=== PATIENT | male | born 1980 | race Two or more races ===

== ENCOUNTER 2024-04-09 09:50 | Emergency (ER) | payer OTHER ==
[~2024-04-09] VITALS: Ht 175.3 cm; Wt 104.5 kg
[2024-04-09 09:59] VITALS: TEMP 98
[2024-04-09 12:48] LABS: BASOPHILS % (AUTO) 0.4 % (0.0-2.0); EOSINOPHILS % (AUTO) 0.4 % (1.0-6.0); HEMOGLOBIN 15.7 g/dL (13.5-17.5); LYMPHOCYTES # (AUTO) 0.4 K/uL (1.0-4.8); LYMPHOCYTES % (AUTO) 8.6 % (22.0-44.0); MEAN CORPUSCULAR HEMOGLOBIN 30.6 pg (26.0-34.0); MEAN CORPUSCULAR HGB CONC 34.2 G/dL (31.0-37.0); MEAN CORPUSCULAR VOLUME 89 fL (80-100); MONOCYTES # (AUTO) 0.4 K/uL (0.1-1.0); MONOCYTES % (AUTO) 8.9 % (2.0-9.0); NEUTROPHILS # (AUTO) 3.7 K/uL (1.8-7.7); NEUTROPHILS % (AUTO) 81.7 % (40.0-70.0); PLATELET COUNT (AUTO) 41 K/uL (150-450); RED BLOOD CELL COUNT(AUTO) 5.14 MIL/uL (4.50-5.90); RED CELL DISTRIBUTION WIDTH 16.6 % (11.5-14.5); WHITE BLOOD COUNT (AUTO) 4.6 K/uL (4.5-11.0)
[2024-04-09 13:05] LABS: TROPONIN I-HIGH SENSITIVITY 6 ng/L (<76)
[2024-04-09 13:16] LABS: B-TYPE NATRIURETIC PEPTIDE 36 pg/mL (0-100)
[2024-04-09 13:21] LABS: CREATINE KINASE, TOTAL ONLY 579 U/L (39-308)
[2024-04-09 13:30] VITALS: BP 142/88; PULSE 74; RESP 18
[2024-04-09 13:34] LABS: APPEARANCE,URINE CLEAR (CLEAR); BILIRUBIN,URINE NEGATIVE (NEGATIVE); COLOR,URINE YELLOW (YELLOW); GLUCOSE, URINE (UA) >=1000 mg/dL (NEGATIVE); KETONES,URINE 40-60 mg/dL (NEGATIVE); LEUKOCYTE ESTERASE ,URINE NEGATIVE (NEGATIVE); NITRATE,URINE NEGATIVE (NEGATIVE); OCCULT BLOOD,URINE NEGATIVE (NEGATIVE); PH,URINE 7.5 (5.0-8.0); PROTEIN,URINE TRACE mg/dL (NEGATIVE); SPECIFIC GRAVITIY, URINE 1.017 (1.003-1.030)
[2024-04-09 13:46] LABS: ALCOHOL, BLOOD (SERUM) < 3 mg/dL (0-10)
[2024-04-09 13:46] LABS: BACTERIA,URINE None Seen /HPF (None Seen); RBC,URINE None Seen /HPF (0-2); SQUAMOUS EPITHELIAL CELL,UR None Seen /LPF (None Seen); WBC,URINE None Seen /HPF (0-5)
[2024-04-09] MEDS ORDERED: CHLO10CA7 PO (13:51)
[2024-04-09] MEDS: ChlordiazePOXIDE HCL 25 MG CAPSULE PO ONE (14:13)
== END 2024-04-09 14:20 | disposition home or self-care (01) ==
LOC: EMS 09:50
DX: F10.10 Alcohol abuse, uncomplicated (principal); E11.9 Type 2 diabetes mellitus without complications; I10 Essential (primary) hypertension; Z79.899 Other long term (current) drug therapy; Y90.6 Blood alcohol level of 120-199 mg/100 ml
CPT/HCPCS: 99285; 71045; 82550; 83880; 84484; 85025; 36415; 82962; 93005; 81001; G0480

== ENCOUNTER 2024-08-14 16:22 | Emergency (ER) | payer MEDICAID, OTHER ==
[~2024-08-14] VITALS: Ht 172.7 cm; Wt 90.9 kg
[~2024-08-14 16:22] MED LIST: CHLO10CA7 PO
[2024-08-14 16:35] VITALS: BP 138/90; PULSE 96; RESP 18; TEMP 98.4; O2SAT 99
== END 2024-08-14 19:00 | disposition left against medical advice (07) ==
LOC: EMS 16:27
DX: F10.129 Alcohol abuse with intoxication, unspecified (principal); Z53.21 Procedure and treatment not carried out due to patient leaving prior to being seen by health care provider; Y90.9 Presence of alcohol in blood, level not specified
CPT/HCPCS: 82962

== ENCOUNTER 2025-03-02 21:49 | Emergency (ER) | payer OTHER ==
[~2025-03-02] VITALS: Ht 172.7 cm; Wt 91.0 kg
[2025-03-02 21:57] VITALS: TEMP 98
[2025-03-02 22:22] LABS: BASOPHILS % (AUTO) 0.1 % (0.0-2.0); EOSINOPHILS % (AUTO) 0.2 % (1.0-6.0); HEMATOCRIT 42.1 % (41-53); HEMOGLOBIN 14.4 g/dL (13.5-17.5); LYMPHOCYTES # (AUTO) 1.3 K/uL (1.0-4.8); LYMPHOCYTES % (AUTO) 15.1 % (22.0-44.0); MEAN CORPUSCULAR HEMOGLOBIN 29.3 pg (26.0-34.0); MEAN CORPUSCULAR HGB CONC 34.2 G/dL (31.0-37.0); MEAN CORPUSCULAR VOLUME 86 fL (80-100); MONOCYTES # (AUTO) 0.8 K/uL (0.1-1.0); MONOCYTES % (AUTO) 9.5 % (2.0-9.0); NEUTROPHILS # (AUTO) 6.3 K/uL (1.8-7.7); NEUTROPHILS % (AUTO) 75.1 % (40.0-70.0); RED BLOOD CELL COUNT(AUTO) 4.92 MIL/uL (4.50-5.90); RED CELL DISTRIBUTION WIDTH 13.9 % (11.5-14.5); WHITE BLOOD COUNT (AUTO) 8.4 K/uL (4.5-11.0)
[2025-03-02 22:28] LABS: ANION GAP 14 mmol/L (8-16); CALCIUM, TOTAL 8.6 mg/dL (8.8-10.5); CARBON DIOXIDE 23 mmol/L (22-29); CHLORIDE 92 mmol/L (98-107); CREATININE 0.88 mg/dL (0.60-1.30); GLOMERULAR FILTR. RATE CALC > 60 mL/min (>60); POTASSIUM 3.9 mmol/L (3.5-5.1); SODIUM SERUM 129 mmol/L (136-145); UREA NITROGEN, BLOOD 6 mg/dL (7-18)
[2025-03-02 22:30] LABS: GLUCOSE,RANDOM 424 mg/dL (70-110)
[2025-03-02 22:47] LABS: PLATELET COUNT (AUTO) 99 K/uL (150-450)
[2025-03-02] MEDS ORDERED: INSULIN REGULAR, HUMAN 100 UNITS/ML IVP ONE (23:15)
[2025-03-02] MEDS ORDERED: POTASSIUM CHLORIDE 20 MEQ ER TABLET PO ONE (23:15)
[2025-03-02] MEDS ORDERED: SODIUM CHLORIDE 0.9% 1,000 ML IV ONE (23:15)
[2025-03-03 01:30] VITALS: BP 129/88; PULSE 101; RESP 17; O2SAT 98
== END 2025-03-03 02:10 | disposition home or self-care (01) ==
LOC: EMS 21:49
DX: F10.129 Alcohol abuse with intoxication, unspecified (principal); E11.65 Type 2 diabetes mellitus with hyperglycemia; E78.00 Pure hypercholesterolemia, unspecified; I10 Essential (primary) hypertension; F17.210 Nicotine dependence, cigarettes, uncomplicated; Z79.899 Other long term (current) drug therapy; Y90.9 Presence of alcohol in blood, level not specified
CPT/HCPCS: 80048; 82962; 85025; 96374; 99283

== ENCOUNTER 2025-03-18 11:33 | Inpatient (IN) | payer OTHER ==
[~2025-03-18] VITALS: Ht 170.2 cm; Wt 92.5 kg
[2025-03-18 12:06] LABS: GLUCOMETER DEV NAME(LOC) ER.7; GLUCOSE,POINT OF CARE 247 MG/DL (70-110)
[2025-03-18 13:25] LABS: BASOPHILS % (AUTO) 0.4 % (0.0-2.0); EOSINOPHILS % (AUTO) 0.1 % (1.0-6.0); HEMATOCRIT 43.9 % (41-53); HEMOGLOBIN 15.1 g/dL (13.5-17.5); LYMPHOCYTES # (AUTO) 0.6 K/uL (1.0-4.8); LYMPHOCYTES % (AUTO) 8.1 % (22.0-44.0); MEAN CORPUSCULAR HEMOGLOBIN 30.2 pg (26.0-34.0); MEAN CORPUSCULAR HGB CONC 34.5 G/dL (31.0-37.0); MEAN CORPUSCULAR VOLUME 88 fL (80-100); MONOCYTES # (AUTO) 0.7 K/uL (0.1-1.0); MONOCYTES % (AUTO) 9.2 % (2.0-9.0); NEUTROPHILS # (AUTO) 6.1 K/uL (1.8-7.7); NEUTROPHILS % (AUTO) 82.2 % (40.0-70.0); PLATELET COUNT (AUTO) 199 K/uL (150-450); RED BLOOD CELL COUNT(AUTO) 5.01 MIL/uL (4.50-5.90); RED CELL DISTRIBUTION WIDTH 15.2 % (11.5-14.5); WHITE BLOOD COUNT (AUTO) 7.5 K/uL (4.5-11.0)
[2025-03-18 13:32] LABS: ANION GAP 9 mmol/L (8-16); CARBON DIOXIDE 28 mmol/L (22-29); CHLORIDE 96 mmol/L (98-107); CREATININE 0.83 mg/dL (0.60-1.30); GLOMERULAR FILTR. RATE CALC > 60 mL/min (>60); GLUCOSE,RANDOM 246 mg/dL (70-110); POTASSIUM 3.7 mmol/L (3.5-5.1); SODIUM SERUM 133 mmol/L (136-145); UREA NITROGEN, BLOOD 4 mg/dL (7-18)
[2025-03-18 13:34] LABS: LIPASE 22 U/L (16-77)
[2025-03-18] MEDS: ChlordiazePOXIDE HCL 25 MG CAPSULE PO ONE (13:36)
[2025-03-18] MEDS: CloNIDine HCL 0.1 MG TABLET PO ONE (13:36)
[2025-03-18] MEDS: SODIUM CHLORIDE 0.9% 1,000 ML IV ONE (13:36)
[2025-03-18 13:39] LABS: ALCOHOL, BLOOD (SERUM) < 3 mg/dL (0-10)
[2025-03-18 13:42] LABS: TROPONIN I-HIGH SENSITIVITY 10 ng/L (<76)
[2025-03-18] MEDS ORDERED: INSULIN LISPRO 100 UNITS/ML SQ PRN (14:00)
[2025-03-18] MEDS ORDERED: GLUCAGON,HUMAN RECOMBINANT 1 MG VIAL IM PRN (14:00)
[2025-03-18] MEDS ORDERED: ONDANSETRON HCL 4 MG/2 ML VIAL IVP PRN (14:00)
[2025-03-18] MEDS ORDERED: DEXTROSE 50%-WATER 25 GM/50 ML SYRINGE IVP PRN (14:15)
[2025-03-18 14:53] LABS: APPEARANCE,URINE CLEAR (CLEAR); BILIRUBIN,URINE NEGATIVE (NEGATIVE); COLOR,URINE LIGHT YELLOW (YELLOW); GLUCOSE, URINE (UA) >=1000 mg/dL (NEGATIVE); KETONES,URINE NEGATIVE (NEGATIVE); LEUKOCYTE ESTERASE ,URINE NEGATIVE (NEGATIVE); NITRATE,URINE NEGATIVE (NEGATIVE); OCCULT BLOOD,URINE NEGATIVE (NEGATIVE); PROTEIN,URINE NEGATIVE (NEGATIVE); SPECIFIC GRAVITIY, URINE 1.005 (1.003-1.030)
[2025-03-18] MEDS: 1: MAGNESIUM SULFATE 2 GM, MVI, ADULT NO.1 WITH VIT K 10 ML, THIAMINE 100 MG, FOLIC ACID IV SCH (14:54)
[2025-03-18 15:06] LABS: BACTERIA,URINE None Seen /HPF (None Seen); RBC,URINE None Seen /HPF (0-2); SQUAMOUS EPITHELIAL CELL,UR None Seen /LPF (None Seen); WBC,URINE None Seen /HPF (0-5)
[2025-03-18] MEDS: LORazepam 2 MG/ML VIAL IVP PRN (16:21)
[2025-03-18] MEDS: ACETAMINOPHEN 325 MG TABLET PO PRN (16:21)
[2025-03-18 16:25] VITALS: BP 147/106; PULSE 79; RESP 19; TEMP 98.8; O2SAT 97
[2025-03-18 16:36] LABS: GLUCOMETER DEV NAME(LOC) ERT.7; GLUCOSE,POINT OF CARE 215 MG/DL (70-110)
[2025-03-18] MEDS: INSULIN LISPRO 100 UNITS/ML SQ PRN (17:43)
[2025-03-18 19:05] LABS: GLUCOMETER DEV NAME(LOC) 5S.2D; GLUCOSE,POINT OF CARE 264 MG/DL (70-110)
[2025-03-18 20:12] VITALS: BP 133/87; PULSE 71; RESP 18; TEMP 98.6; O2SAT 97
[2025-03-18 20:30] LABS: GLUCOMETER DEV NAME(LOC) 5S.2D; GLUCOSE,POINT OF CARE 226 MG/DL (70-110)
[2025-03-18] MEDS: DOCUSATE SODIUM 100 MG CAPSULE PO SCH (20:48)
[2025-03-18] MEDS: FAMOTIDINE 20 MG TABLET PO SCH (20:51)
[2025-03-19] VITALS (7 sets, daily range): BP systolic 130–140; BP diastolic 85–99; PULSE 68–78; RESP 18–19; TEMP 98.1–98.8; O2SAT 97–99
[2025-03-19] MEDS: ChlordiazePOXIDE HCL 25 MG CAPSULE PO SCH (00:13)
[2025-03-19 07:00] LABS: GLUCOMETER DEV NAME(LOC) 5S.1D; GLUCOSE,POINT OF CARE 224 MG/DL (70-110)
[2025-03-19] MEDS: MetFORMIN HCL 500 MG TABLET PO SCH (18:03)
[2025-03-20 04:05] VITALS: BP 124/92; PULSE 64; RESP 18; TEMP 98.2; O2SAT 95
[2025-03-20 06:34] LABS: BASOPHILS % (AUTO) 0.5 % (0.0-2.0); HEMATOCRIT 42.1 % (41-53); HEMOGLOBIN 14.6 g/dL (13.5-17.5); LYMPHOCYTES % (AUTO) 22.6 % (22.0-44.0); MEAN CORPUSCULAR HEMOGLOBIN 30.7 pg (26.0-34.0); MEAN CORPUSCULAR HGB CONC 34.6 G/dL (31.0-37.0); MEAN CORPUSCULAR VOLUME 89 fL (80-100); MONOCYTES # (AUTO) 0.4 K/uL (0.1-1.0); MONOCYTES % (AUTO) 9.2 % (2.0-9.0); NEUTROPHILS % (AUTO) 65.7 % (40.0-70.0); PLATELET COUNT (AUTO) 153 K/uL (150-450); RED BLOOD CELL COUNT(AUTO) 4.75 MIL/uL (4.50-5.90); RED CELL DISTRIBUTION WIDTH 15.3 % (11.5-14.5); WHITE BLOOD COUNT (AUTO) 4.6 K/uL (4.5-11.0)
[2025-03-20] MEDS ORDERED: SODIUM CHLORIDE 0.9% 1,000 ML ONE (06:37)
[2025-03-20 06:46] LABS: ANION GAP 6 mmol/L (8-16); CALCIUM, TOTAL 8.6 mg/dL (8.8-10.5); CARBON DIOXIDE 27 mmol/L (22-29); CHLORIDE 105 mmol/L (98-107); CREATININE 0.61 mg/dL (0.60-1.30); GLOMERULAR FILTR. RATE CALC > 60 mL/min (>60); GLUCOSE,RANDOM 203 mg/dL (70-110); POTASSIUM 3.6 mmol/L (3.5-5.1); SODIUM SERUM 138 mmol/L (136-145); UREA NITROGEN, BLOOD 7 mg/dL (7-18)
[2025-03-20 08:36] VITALS: BP 122/88; PULSE 70; RESP 19; TEMP 98.6; O2SAT 96
[2025-03-20] MEDS ORDERED: METF-1211 PO (10:55)
[2025-03-20 12:31] VITALS: BP 126/85; PULSE 68; RESP 19; TEMP 99; O2SAT 99
[2025-03-21 11:11] LABS: GLUCOMETER DEV NAME(LOC) 5S.2D; GLUCOSE,POINT OF CARE 248 MG/DL (70-110)
[2025-03-21 11:11] LABS: GLUCOMETER DEV NAME(LOC) 5S.2D; GLUCOSE,POINT OF CARE 228 MG/DL (70-110)
[2025-03-21 11:11] LABS: GLUCOMETER DEV NAME(LOC) 5S.2D; GLUCOSE,POINT OF CARE 182 MG/DL (70-110)
[2025-03-21 11:11] LABS: GLUCOMETER DEV NAME(LOC) 5S.2D; GLUCOSE,POINT OF CARE 256 MG/DL (70-110)
== END 2025-03-20 12:45 | disposition home or self-care (01) | DRG 775 ==
LOC: EMS 11:35 → EDH 13:59 → 5S 15:55
PROVIDERS: ADMIT Internal Medicine; ATTEND Internal Medicine
DX: F10.139 Alcohol abuse with withdrawal, unspecified (principal); E11.9 Type 2 diabetes mellitus without complications; E66.9 Obesity, unspecified; I10 Essential (primary) hypertension; Z68.31 Body mass index [BMI] 31.0-31.9, adult; E78.00 Pure hypercholesterolemia, unspecified; Z83.3 Family history of diabetes mellitus; Z87.891 Personal history of nicotine dependence
CPT/HCPCS: 80048; 81001; 82962; 83690; 84484; 85025; 93005; 96361; 96365; 96375; 99285; G0480; J2060; J3411; J3475; J3490; J7030; 36415-L1; 36415-TC

== ENCOUNTER 2025-03-31 23:03 | Emergency (ER) | payer OTHER ==
[~2025-03-31] VITALS: Ht 172.7 cm; Wt 90.0 kg
[~2025-03-31 23:03] MED LIST changes: -CHLO10CA7 PO; +METF-1211 PO
[2025-04-01 06:02] VITALS: BP 128/71; PULSE 78; RESP 18; TEMP 97.1; O2SAT 97
== END 2025-04-01 06:12 | disposition home or self-care (01) ==
LOC: EMS 23:16
DX: F10.129 Alcohol abuse with intoxication, unspecified (principal); E11.9 Type 2 diabetes mellitus without complications; E78.00 Pure hypercholesterolemia, unspecified; I10 Essential (primary) hypertension; F17.210 Nicotine dependence, cigarettes, uncomplicated; Y90.9 Presence of alcohol in blood, level not specified
CPT/HCPCS: 99285; Z7502

== ENCOUNTER 2025-04-18 13:49 | Inpatient (IN) | payer OTHER ==
[~2025-04-18] VITALS: Ht 172.7 cm; Wt 87.9 kg
[2025-04-18 14:24] LABS: PLATELET COUNT (AUTO) 61 K/uL (150-450); RED BLOOD CELL COUNT(AUTO) 4.87 MIL/uL (4.50-5.90); RED CELL DISTRIBUTION WIDTH 16.7 % (11.5-14.5); WHITE BLOOD COUNT (AUTO) 4.3 K/uL (4.5-11.0)
[2025-04-18 14:36] LABS: CALCIUM, TOTAL 8.0 mg/dL (8.8-10.5); CREATININE 0.63 mg/dL (0.60-1.30); GLOMERULAR FILTR. RATE CALC > 60 mL/min (>60); GLUCOSE,RANDOM 216 mg/dL (70-110); SODIUM SERUM 136 mmol/L (136-145); UREA NITROGEN, BLOOD 4 mg/dL (7-18)
[2025-04-18] MEDS: SODIUM CHLORIDE 0.9% 1,000 ML IV ONE (14:36)
[2025-04-18 14:43] LABS: ALCOHOL, BLOOD (SERUM) 517.0 mg/dL (0-10)
[2025-04-18 15:02] LABS: ASPARTATE AMINOTRANSFERASE 162.0 U/L (15-37); TOTAL PROTEIN, SERUM 8.3 g/dL (6.4-8.2)
[2025-04-18 15:45] LABS: ACETONE,BLOOD NEGATIVE (NEGATIVE)
[2025-04-18] MEDS ORDERED: ALBUTEROL SULFATE 2.5 MG/0.5 ML NEB SOLUTION NEB PRN (15:45)
[2025-04-18] MEDS ORDERED: ONDANSETRON HCL 4 MG/2 ML VIAL IVP PRN (15:45)
[2025-04-18] MEDS ORDERED: IPRATROPIUM BROMIDE 0.5 MG/2.5 ML NEB SOLUTION NEB PRN (15:45)
[2025-04-18] MEDS: NALOXONE HCL 1 MG/ML 2 ML SYRINGE IVP ONE (15:53)
[2025-04-18] MEDS: HEPARIN SODIUM,PORCINE 5,000 UNITS/ML VIAL SQ SCH (15:56)
[2025-04-18 15:58] LABS: LACTIC ACID 3.9 mmol/L (0.4-2.0)
[2025-04-18] MEDS: RINGERS SOLUTION,LACTATED 1,000 ML IV ONE (16:08)
[2025-04-18 17:17] VITALS: BP 122/90; PULSE 83; RESP 18; TEMP 97.7; O2SAT 98
[2025-04-18] MEDS: SODIUM CHLORIDE 0.9% 500 ML IV ONE ×2 (19:00→22:41)
[2025-04-18 19:04] VITALS: BP 122/90; PULSE 83; RESP 20; TEMP 98.6; O2SAT 96
[2025-04-18 19:55] VITALS: BP 120/86; PULSE 88; RESP 19; TEMP 97.3; O2SAT 98
[2025-04-18] MEDS: DOCUSATE SODIUM 100 MG CAPSULE PO SCH (21:00)
[2025-04-19 00:13] VITALS: BP 132/90; PULSE 95; RESP 18; TEMP 98.4; O2SAT 96
[2025-04-19 03:20] VITALS: BP 142/82; PULSE 103; RESP 17; TEMP 98.2; O2SAT 98
[2025-04-19] MEDS: ACETAMINOPHEN 325 MG TABLET PO PRN (04:17)
[2025-04-19 06:16] LABS: PLATELET COUNT (AUTO) 51 K/uL (150-450); RED BLOOD CELL COUNT(AUTO) 4.48 MIL/uL (4.50-5.90); RED CELL DISTRIBUTION WIDTH 16.3 % (11.5-14.5); WHITE BLOOD COUNT (AUTO) 4.9 K/uL (4.5-11.0)
[2025-04-19 06:32] LABS: CALCIUM, TOTAL 8.2 mg/dL (8.8-10.5); CREATININE 0.62 mg/dL (0.60-1.30); GLOMERULAR FILTR. RATE CALC > 60 mL/min (>60); GLUCOSE,RANDOM 120 mg/dL (70-110); SODIUM SERUM 134 mmol/L (136-145); UREA NITROGEN, BLOOD 3 mg/dL (7-18)
[2025-04-19 06:37] LABS: LACTIC ACID 5.1 mmol/L (0.4-2.0)
[2025-04-19] MEDS ORDERED: LORazepam 2 MG/ML VIAL IVP PRN (07:45)
[2025-04-19] MEDS: RINGERS SOLUTION,LACTATED 1,000 ML IV ONE (07:48)
[2025-04-19] MEDS: LORazepam 2 MG/ML VIAL IVP ONE (07:48)
[2025-04-19 08:31] VITALS: BP 161/85; PULSE 75; RESP 18; TEMP 98.4; O2SAT 99
[2025-04-19] MEDS: 1: MAGNESIUM SULFATE 2 GM, MVI, ADULT NO.1 WITH VIT K 10 ML, THIAMINE 100 MG, FOLIC ACID IV SCH (09:25)
[2025-04-19 10:54] LABS: ASPARTATE AMINOTRANSFERASE 180.0 U/L (15-37); TOTAL PROTEIN, SERUM 7.8 g/dL (6.4-8.2)
[2025-04-19 11:47] VITALS: BP 154/91; PULSE 77; RESP 18; TEMP 98; O2SAT 96
[2025-04-19] MEDS: LORazepam 2 MG/ML VIAL IVP PRN (12:57)
[2025-04-19 13:27] LABS: APPEARANCE,URINE CLEAR (CLEAR); GLUCOSE, URINE (UA) 300-500 mg/dL (NEGATIVE); LEUKOCYTE ESTERASE ,URINE NEGATIVE (NEGATIVE); NITRATE,URINE NEGATIVE (NEGATIVE); OCCULT BLOOD,URINE NEGATIVE (NEGATIVE); PH,URINE DRUG SCREEN 7.5 (5.0-8.0); SPECIFIC GRAVITIY, URINE 1.007 (1.003-1.030)
[2025-04-19 13:46] LABS: ALCOHOL, URINE DRUG SCREEN NEGATIVE (NEGATIVE); AMPHET/METH SCREEN,URINE NEGATIVE (NEGATIVE); BARBITURATE SCREEN, URINE NEGATIVE (NEGATIVE); CANNABINOID SCREEN,URINE NEGATIVE (NEGATIVE); COCAINE SCREEN,URINE NEGATIVE (NEGATIVE); METHADONE SCREEN, URINE NEGATIVE (NEGATIVE)
[2025-04-19 14:14] LABS: SQUAMOUS EPITHELIAL CELL,UR Rare /LPF (None Seen)
[2025-04-19 16:02] VITALS: BP 169/87; PULSE 89; RESP 17; TEMP 97.7; O2SAT 95
[2025-04-19] MEDS ORDERED: SODIUM CHLORIDE 0.9% 1,000 ML ONE (19:20)
[2025-04-19 19:48] VITALS: BP 151/90; PULSE 111; RESP 19; TEMP 98.2; O2SAT 98
[2025-04-20 00:07] VITALS: BP 125/73; PULSE 78; RESP 15; TEMP 98.4; O2SAT 96
[2025-04-20 05:47] VITALS: BP 127/79; PULSE 92; RESP 18; TEMP 98.6; O2SAT 96
[2025-04-20 06:41] LABS: RED BLOOD CELL COUNT(AUTO) 4.45 MIL/uL (4.50-5.90); RED CELL DISTRIBUTION WIDTH 16.1 % (11.5-14.5); WHITE BLOOD COUNT (AUTO) 4.1 K/uL (4.5-11.0)
[2025-04-20 06:43] LABS: CALCIUM, TOTAL 8.4 mg/dL (8.8-10.5); CREATININE 0.51 mg/dL (0.60-1.30); GLOMERULAR FILTR. RATE CALC > 60 mL/min (>60); GLUCOSE,RANDOM 140 mg/dL (70-110); SODIUM SERUM 134 mmol/L (136-145); UREA NITROGEN, BLOOD 4 mg/dL (7-18)
[2025-04-20 08:00] VITALS: BP 144/96; PULSE 90; RESP 18; TEMP 98; O2SAT 96
[2025-04-20 08:33] LABS: PLATELET COUNT (AUTO) 35 K/uL (150-450)
[2025-04-20 11:18] VITALS: BP 124/96; PULSE 69; RESP 18; TEMP 98.1; O2SAT 98
[2025-04-20 15:43] VITALS: BP 135/96; PULSE 85; RESP 18; TEMP 98.2; O2SAT 97
[2025-04-20 20:00] VITALS: BP 151/102; PULSE 88; RESP 19; TEMP 98.6; O2SAT 96
[2025-04-20] MEDS ORDERED: DEXTROSE 50%-WATER 25 GM/50 ML SYRINGE IVP PRN (22:00)
[2025-04-20] MEDS: INSULIN LISPRO 100 UNITS/ML SQ PRN (22:09)
[2025-04-21] VITALS (7 sets, daily range): BP systolic 112–140; BP diastolic 76–98; PULSE 70–87; RESP 17–19; TEMP 98.4–99; O2SAT 97–99
[2025-04-21 00:15] LABS: GLUCOMETER DEV NAME(LOC) 5N.2C; GLUCOSE,POINT OF CARE 295 MG/DL (70-110)
[2025-04-21 06:56] LABS: GLUCOMETER DEV NAME(LOC) 5N.1D; GLUCOSE,POINT OF CARE 128 MG/DL (70-110)
[2025-04-21 07:51] LABS: CALCIUM, TOTAL 8.6 mg/dL (8.8-10.5); CREATININE 0.65 mg/dL (0.60-1.30); GLOMERULAR FILTR. RATE CALC > 60 mL/min (>60); GLUCOSE,RANDOM 116 mg/dL (70-110); SODIUM SERUM 135 mmol/L (136-145); UREA NITROGEN, BLOOD 6 mg/dL (7-18)
[2025-04-21 07:56] LABS: PLATELET COUNT (AUTO) 42 K/uL (150-450); RED BLOOD CELL COUNT(AUTO) 4.72 MIL/uL (4.50-5.90); RED CELL DISTRIBUTION WIDTH 16.6 % (11.5-14.5); WHITE BLOOD COUNT (AUTO) 4.9 K/uL (4.5-11.0)
[2025-04-21 17:25] LABS: GLUCOMETER DEV NAME(LOC) 5N.1D; GLUCOSE,POINT OF CARE 297 MG/DL (70-110)
[2025-04-21 17:26] LABS: GLUCOMETER DEV NAME(LOC) 5N.1D; GLUCOSE,POINT OF CARE 213 MG/DL (70-110)
[2025-04-21] MEDS ORDERED: DEXTROSE 50%-WATER 25 GM/50 ML SYRINGE IVP PRN (19:30)
[2025-04-21] MEDS: INSULIN GLARGINE,HUM.REC.ANLOG 100 UNITS/ML SQ SCH (20:37)
[2025-04-21] MEDS: INSULIN LISPRO 100 UNITS/ML SQ PRN (20:38)
[2025-04-22 04:18] VITALS: BP 131/96; PULSE 96; RESP 18; TEMP 98.6; O2SAT 94
[2025-04-22 06:16] LABS: GLUCOMETER DEV NAME(LOC) 5N.1D; GLUCOSE,POINT OF CARE 239 MG/DL (70-110)
[2025-04-22 07:54] VITALS: BP 104/77; PULSE 57; RESP 19; TEMP 98.4; O2SAT 96
[2025-04-22] MEDS: LORazepam 2 MG/ML VIAL IVP ONE (11:26)
[2025-04-22] MEDS: MULTIVITAMINS WITH MINERALS, THERAPEUTIC TABLET PO SCH (11:26)
[2025-04-22 11:55] VITALS: BP 125/94; PULSE 94; RESP 17; TEMP 98.1; O2SAT 96
[2025-04-22 15:53] VITALS: BP 129/96; PULSE 86; RESP 17; TEMP 99; O2SAT 98
[2025-04-22 16:06] LABS: GLUCOMETER DEV NAME(LOC) 5N.2C; GLUCOSE,POINT OF CARE 195 MG/DL (70-110)
[2025-04-22 16:06] LABS: GLUCOMETER DEV NAME(LOC) 5N.2C; GLUCOSE,POINT OF CARE 171 MG/DL (70-110)
[2025-04-22 19:04] VITALS: BP 127/90; PULSE 91; RESP 18; TEMP 99.1; O2SAT 96
[2025-04-22 23:39] VITALS: BP 117/73; PULSE 84; RESP 18; TEMP 98.4; O2SAT 98
[2025-04-23 05:26] LABS: GLUCOMETER DEV NAME(LOC) 5N.1D; GLUCOSE,POINT OF CARE 185 MG/DL (70-110)
[2025-04-23 05:26] LABS: GLUCOMETER DEV NAME(LOC) 5N.2C; GLUCOSE,POINT OF CARE 230 MG/DL (70-110)
[2025-04-23 05:46] LABS: GLUCOMETER DEV NAME(LOC) 5N.2C; GLUCOSE,POINT OF CARE 235 MG/DL (70-110)
[2025-04-23 06:06] LABS: CALCIUM, TOTAL 8.8 mg/dL (8.8-10.5); CREATININE 0.58 mg/dL (0.60-1.30); GLOMERULAR FILTR. RATE CALC > 60 mL/min (>60); GLUCOSE,RANDOM 187 mg/dL (70-110); SODIUM SERUM 137 mmol/L (136-145); UREA NITROGEN, BLOOD 8 mg/dL (7-18)
[2025-04-23 06:12] LABS: ASPARTATE AMINOTRANSFERASE 109.0 U/L (15-37); TOTAL PROTEIN, SERUM 7.4 g/dL (6.4-8.2)
[2025-04-23 06:46] VITALS: BP 104/75; PULSE 91; RESP 17; TEMP 97.7; O2SAT 97
[2025-04-23] MEDS ORDERED: METF-1211 PO (07:44)
[2025-04-23] MEDS ORDERED: GLIP5TAB16 PO (07:44)
[2025-04-23 07:58] LABS: PLATELET COUNT (AUTO) 80 K/uL (150-450); RED BLOOD CELL COUNT(AUTO) 4.85 MIL/uL (4.50-5.90); RED CELL DISTRIBUTION WIDTH 17.2 % (11.5-14.5); WHITE BLOOD COUNT (AUTO) 3.9 K/uL (4.5-11.0)
[2025-04-23 08:39] LABS: TROPONIN I-HIGH SENSITIVITY 5 ng/L (<76)
[2025-04-23 08:43] VITALS: BP 135/92; PULSE 88; RESP 18; TEMP 98.1; O2SAT 95
[2025-04-23] MEDS: LORazepam 2 MG/ML VIAL IVP SCH (08:50)
[2025-04-23 11:25] LABS: GLUCOMETER DEV NAME(LOC) 5N.2C; GLUCOSE,POINT OF CARE 225 MG/DL (70-110)
[2025-04-23 13:17] LABS: TROPONIN I-HIGH SENSITIVITY 6 ng/L (<76)
[2025-04-23 16:28] VITALS: BP 126/94; PULSE 90; RESP 19; TEMP 98.1; O2SAT 98
[2025-04-23 17:26] LABS: GLUCOMETER DEV NAME(LOC) 5N.2C; GLUCOSE,POINT OF CARE 209 MG/DL (70-110)
[2025-04-23 20:22] VITALS: BP 124/83; PULSE 86; RESP 18; TEMP 98.2; O2SAT 98
[2025-04-23] MEDS: INSULIN GLARGINE,HUM.REC.ANLOG 100 UNITS/ML SQ SCH (20:51)
[2025-04-23 23:56] VITALS: BP 120/88; PULSE 88; RESP 18; O2SAT 97
[2025-04-24] VITALS (7 sets, daily range): BP systolic 105–137; BP diastolic 74–93; PULSE 76–89; RESP 16–19; TEMP 97.9–98.8; O2SAT 96–99
[2025-04-24 05:50] LABS: GLUCOMETER DEV NAME(LOC) 5N.2C; GLUCOSE,POINT OF CARE 203 MG/DL (70-110)
[2025-04-24 07:09] LABS: TROPONIN I-HIGH SENSITIVITY 5 ng/L (<76)
[2025-04-24 07:21] LABS: GLUCOMETER DEV NAME(LOC) 5N.2C; GLUCOSE,POINT OF CARE 215 MG/DL (70-110)
[2025-04-24] MEDS: ACETAMINOPHEN 500 MG TABLET PO PRN (10:38)
[2025-04-24] MEDS: MAGNESIUM SULFATE 2 GM, MVI, ADULT NO.1 WITH VIT K 10 ML, THIAMINE 100 MG, FOLIC ACID 1... IV ONE (12:31)
[2025-04-24 16:55] LABS: GLUCOMETER DEV NAME(LOC) 5N.2C; GLUCOSE,POINT OF CARE 220 MG/DL (70-110)
[2025-04-25 04:09] VITALS: BP 120/81; PULSE 66; RESP 18; TEMP 97.5; O2SAT 97
[2025-04-25 05:53] LABS: PLATELET COUNT (AUTO) 110 K/uL (150-450); RED BLOOD CELL COUNT(AUTO) 4.78 MIL/uL (4.50-5.90); RED CELL DISTRIBUTION WIDTH 16.9 % (11.5-14.5); WHITE BLOOD COUNT (AUTO) 3.6 K/uL (4.5-11.0)
[2025-04-25 05:56] LABS: GLUCOMETER DEV NAME(LOC) 5S.1D; GLUCOSE,POINT OF CARE 241 MG/DL (70-110)
[2025-04-25 05:58] LABS: CALCIUM, TOTAL 9.1 mg/dL (8.8-10.5); CREATININE 0.59 mg/dL (0.60-1.30); GLOMERULAR FILTR. RATE CALC > 60 mL/min (>60); GLUCOSE,RANDOM 187 mg/dL (70-110); SODIUM SERUM 137 mmol/L (136-145); UREA NITROGEN, BLOOD 7 mg/dL (7-18)
[2025-04-25 06:06] LABS: GLUCOMETER DEV NAME(LOC) 5S.2D; GLUCOSE,POINT OF CARE 250 MG/DL (70-110)
[2025-04-25 07:13] LABS: BAND NEUTROPHILS % (MANUAL) 3 % (0-5); LYMPHOCYTES % (MANUAL) 32 % (22-44); MONOCYTES % (MANUAL) 23 % (2-9); SEGMENTED NEUTROPHILS % 42 % (40-70)
[2025-04-25 08:00] VITALS: BP 111/80; PULSE 71; RESP 20; TEMP 98.4; O2SAT 98
[2025-04-25] MEDS: NALTREXONE HCL 50 MG TABLET PO SCH (09:11)
[2025-04-25 16:00] VITALS: BP 138/103; PULSE 75; RESP 20; TEMP 98.1; O2SAT 98
[2025-04-25 18:10] LABS: GLUCOMETER DEV NAME(LOC) 6N.1B; GLUCOSE,POINT OF CARE 192 MG/DL (70-110)
[2025-04-25 20:12] VITALS: BP 118/86; PULSE 94; RESP 20; TEMP 99.3; O2SAT 94
[2025-04-26 05:11] VITALS: BP 114/82; PULSE 75; RESP 20; TEMP 98.7; O2SAT 97
[2025-04-26 05:41] LABS: GLUCOMETER DEV NAME(LOC) 6N.1B; GLUCOSE,POINT OF CARE 220 MG/DL (70-110)
[2025-04-26 05:45] LABS: GLUCOMETER DEV NAME(LOC) 4E.2; GLUCOSE,POINT OF CARE 229 MG/DL (70-110)
[2025-04-26 05:46] LABS: GLUCOMETER DEV NAME(LOC) 4E.2; GLUCOSE,POINT OF CARE 212 MG/DL (70-110)
[2025-04-26 05:55] LABS: GLUCOMETER DEV NAME(LOC) 6N.1B; GLUCOSE,POINT OF CARE 191 MG/DL (70-110)
[2025-04-26 08:01] VITALS: BP 126/87; PULSE 86; RESP 20; TEMP 98.8; O2SAT 98
[2025-04-26 16:30] VITALS: BP 119/89; PULSE 86; RESP 18; TEMP 99.1; O2SAT 97
[2025-04-26 19:54] VITALS: BP 120/87; PULSE 89; RESP 18; TEMP 99.3; O2SAT 96
[2025-04-27 04:57] VITALS: BP 104/73; PULSE 66; RESP 18; TEMP 98.6; O2SAT 97
[2025-04-27] MEDS ORDERED: NALT50TA33 PO (07:06)
[2025-04-27 08:42] VITALS: BP 114/80; PULSE 81; RESP 20; TEMP 98.6; O2SAT 95
[2025-04-27 11:11] LABS: GLUCOMETER DEV NAME(LOC) 4E.2; GLUCOSE,POINT OF CARE 203 MG/DL (70-110)
[2025-04-27 11:11] LABS: GLUCOMETER DEV NAME(LOC) 4E.2; GLUCOSE,POINT OF CARE 210 MG/DL (70-110)
[2025-04-27 11:11] LABS: GLUCOMETER DEV NAME(LOC) 4E.2; GLUCOSE,POINT OF CARE 255 MG/DL (70-110)
[2025-04-27 11:20] LABS: GLUCOMETER DEV NAME(LOC) 6N.1B; GLUCOSE,POINT OF CARE 234 MG/DL (70-110)
[2025-04-27 13:41] LABS: GLUCOMETER DEV NAME(LOC) 6N.1B; GLUCOSE,POINT OF CARE 224 MG/DL (70-110)
== END 2025-04-27 15:53 | disposition home or self-care (01) | DRG 775 ==
LOC: EMS 13:51 → EDH 15:40 → 5N 17:05 → 5S 04-24 13:54 → 4E 04-24 23:00
PROVIDERS: ADMIT Internal Medicine; ATTEND Internal Medicine
DX: F10.229 Alcohol dependence with intoxication, unspecified (principal); F10.231 Alcohol dependence with withdrawal delirium; J96.01 Acute respiratory failure with hypoxia; J69.0 Pneumonitis due to inhalation of food and vomit; G92.9 Unspecified toxic encephalopathy; Y90.8 Blood alcohol level of 240 mg/100 ml or more; I10 Essential (primary) hypertension; E78.00 Pure hypercholesterolemia, unspecified; F33.2 Major depressive disorder, recurrent severe without psychotic features; E11.65 Type 2 diabetes mellitus with hyperglycemia; K29.20 Alcoholic gastritis without bleeding; F17.210 Nicotine dependence, cigarettes, uncomplicated; Z79.84 Long term (current) use of oral hypoglycemic drugs; Z83.3 Family history of diabetes mellitus
CPT/HCPCS: 70450; 80048; 80076; 80307; 81001; 82009; 82962; 83036; 83605; 83690; 83735; 84484; 85025; 93005; 93306; 96361; 96374; 99285; G0378; G0480; J1644; J1815; J2060; J2312; J2405; J3411; J3475; J3490; J7030; J7040; J7120; 36415-L1; 36415-TC